=== PATIENT | male | born 1995 | race Caucasian/White ===

== ENCOUNTER 2021-07-06 11:58 | Oncology outpatient (recurring) (ONCR) | payer SELFPAY | END 2021-08-01 23:59 | disposition home or self-care (01) | PROVIDERS: Family Provider Internal Medicine; Visit Provider Internal Medicine Medical Oncology | DX: E83.110 Hereditary hemochromatosis (principal); E83.10 Disorder of iron metabolism, unspecified; Z79.899 Other long term (current) drug therapy | CPT/HCPCS: 36415; 80053; 82728; 83540; 83550; 99204 ==

== ENCOUNTER 2024-11-25 20:18 | Emergency (ER) | payer SELFPAY ==
--- OUTSIDE RECORDS SUMMARY | 2024-11-25 20:25 | XMS_ITS | Clinical Summary ---
Author Organization [facility] Address [address] [place] [address] Care Team Providers Care Camera Assembler Name Role Phone Unavailable Primary Care Provider Unavailabl e Allergies Active Allergy Reactions Criticality Noted Date Comments Buspirone (Bulk) Hallucination Low 08/23/2023 Suicidal issues Codeine Unknown 02/17/2008 Medications albuterol sulfate 90 mcg/Actuation inhaler Take 2 Puffs by inhalation every 6 hours as needed for Shortness of Breath. 0 Active fluticasone furoate-vilante roL (Breo Ellipta) 200-25 mcg/dose Disk with Device Take 1 Puff by inhalation daily. 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 2.5 week ICU stay. Only surviving quadruplet. ADHD (attention deficit hyperactivity disorder) Overview (06/30/2020): Diagnosed age 4. Intolerant to multiple stimulants (case HAs, abdominal pain). Strattera started 2004. Immunizations Immunization Administration Dates Next Due (M-M-R II/PRIORIX)(12 MO UP) MEASLES, MUMPS AND RUBELLA VIRUS VACCINE, 0.5 ML IM/SUBCUT 10/18/2000,05/05/1996 Dt Dtp Dtap Vaccine 10/18/2000, 7,1995,1995,1995 HIB, Unspecified Formulation 08/06/1996, 1995,1995,1995 Hepatitis B Vaccine 1995,1995,1995 IPV/OPV 10/18/2000, 6,1995,1995 Family History Medical History Relation Name Comments Healthy Father Healthy Maternal Grandfather Healthy Maternal Grandmother Healthy Mother Cancer Other mguncle prostrate Other Paternal Grandfather mv a Healthy Paternal Grandmother Breast Cancer Neg Hx Colon Cancer Neg Hx Relation Name Status Comments Father Maternal Grandfather Maternal Grandmother Mother Other mguncle Alive Paternal Grandfather Paternal Grandmother Social History Tobacco Use Types Packs/Day Years Used Date Smoking Tobacco: Former Smokeless Tobacco: Former Quit: 01/03/2011 Comments:Quit smoking: only tried smoking Alcohol Use Standard Drinks/Week Comments Yes 14 (1 standard drink = 0.6 oz pu re alcohol) Feeling Safe Answer Date Recorded Are you in a relationship wi th someone who hurts you emotionally and/or physically? 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 Gender Identity Not on file Sexual Orientation Not on file Last Filed Vital Signs Vital Sign Reading Time Taken Comments Blood Pressure 125/69 08/23/2023 10:00 AM CDT Pulse 60 08/23/2023 10:00 AM CDT Temperature 36.8 C (98.2 F) 08/23/2023 9:09 AM CDT Respiratory Rate 20 08/23/2023 10:0 0 AM CDT Oxygen Saturation 92% 08/23/2023 10: 00 AM CDT Inhaled Oxygen Concentration - - Weight 121.2 kg (267 lb 3.2 oz) 08/23/2023 9:09 AM CDT Height 175.3 cm (5' 9 ) 08/23/2023 9:09 AM CDT Body Mass Index 39.46 08/23/2023 9:09 AM CDT Plan of Treatment Health Maintenance Due Date Last Done Comments DTAP/TDAP/TD VACCINES (6 - Tdap) 2006 10/18/2000, 12/03/1996, 1995, Additional history exists HPV VACCINES (1 - 3-dose SCD M series) 2022 INFLUENZA VACCINE (#1) 2024 HEPATITIS B VACCINES Completed 1995, 1995, 1995
[2024-11-25 20:29] VITALS: BP 144/91; PULSE 95; RESP 18; TEMP 36.8; O2SAT 98; BMI 34.9
--- NOTE | 2024-11-25 20:36 | XR_ITS ---
WS: [id number] Exam: XR chest 1V portable [id number] Date/Time of Exam: 11/25/2024 8:36 PM Reason For Exam: syncope Comparison 10/12/2016. Lungs are fully inflated and clear. Normal cardiomediastinal silhouette and regional bony elements. XR/XR chest 1V portable [id number] IMPRESSION: 1. Normal chest.
--- NOTE | 2024-11-25 20:39 | ECG_ITS ---
[facility] Date: 2024-11-25 Pat Name: Mauricio Molina Department: Room: Gender: Male Manager Paid: : 1995 Requested By: Fabian Cornejo Order Number: [id number] Parsons MD: Rajat De Dios M.D. Measurements Intervals [place] Rate: 68 P: 52 OR: 163 QRS: 30 QRSD: 97 T: 34 QT: 343 QTc: 366 Interpretive Statements SINUS RHYTHM WITH SINUS ARRHYTHMIA EARLY REPOLARIZATION Compared to ECG 10/12/2016 23:22:22 No significant changes Electronically Signed On 11-25-2024 21:37:15 CDT by Rajat De Dios M.D. [id number]
[2024-11-25 21:03] VITALS: BP 131/80; PULSE 73; O2SAT 99
--- NOTE | 2024-11-25 21:07 | ED_ITS ---
HPI - Syncope 2 General: Chief Complaint: Syncope Stated Complaint: dizzy,hbp, high heart rate, headache Time Seen by Provider: 11/25/24 20:34 Source: patient Mode of arrival: ambulatory Limitations: no limitations History of Present Illness: Patient is a 29-year-old male with past medical history of panic disorder and anxiety/depression who presents to Emergency Department multiple complaints. He states he was working in his shop, he bent over and when he stood up he felt lightheaded like he was going to pass out. Also reported full body weakness and numbness down his right lower extremity that has all since resolved since coming Emergency Department. He states he thinks that he freaked himself out. He states that recently his father passed from a heart attack and he thinks that he worked himself up over this, states he had chest pain and shortness of breath with initial onset of symptoms as well but that these have since resolved. States that he has such severe anxiety that he has medicinal marijuana card for this, has smoked marijuana today. He has no symptoms otherwise at this time, he does note that he took his pulse and blood pressure at home with the onset of his symptoms and notes that both of these were significantly elevated, does not quantify. No pertinent cardiac history. Does not take anything else for anxiety and depression. Associated symptoms: Reports chest pain and lightheadedness; Deny abdominal pain, fever(s), headache(s) or nausea Related Data Previous Rx's ?Medication ?Instructions ?Recorded albuterol sulfate 90 mcg/actuation 2 puff inhalation Q 6H PRN 07/06/21 aerosol inhaler (Ventolin HFA) shortness of breath or wheezing #18 grams fluticasone propionate 110 2 puff inhalation BID #12 g alina 07/06/21 mcg/actuation HFA aerosol inhaler (Flovent HFA) Allergies Allergy/AdvReac Type Severity Reaction Status Date / Time buspirone (From BuSpar) Allergy ADR-Agitate Verified 11/25/24 20:34 d codeine Allergy ADR-Anxiety Verified 11/25/24 20:34 Review of Systems 2 General: Reports: 10 or more systems reviewed and unremarkable except in HPI and below Const: Denies: fever(s), chills or fatigue Eyes: Denies: change in vision ENMT: Denies: throat pain, ear or mastoid pain or nasal discharge Card: Reports: chest pain, palpitations, lightheadedness and pre-syncope; Denies: swelling of feet/ankles Resp: Reports: dyspnea; Denies: productive cough or wheezing GI: Denies: abdominal pain, nausea, vomiting, diarrhea or constipation : Denies: flank pain, difficulty urinating, dysuria or urinary frequency Musc: Denies: neck pain, back pain or joint pain Skin/Breast: Denies: rash Neuro: Reports: numbness in extremities, weakness in extremities, sensory changes and dizziness; Denies: headache(s), difficulty walking, Slurred speech present or seizure-like activity Psych: Reports: anxiety and panic attacks PFSH ED 2 PFSH: Medical History Asthma Depression Anxiety Hemochromatosis associated with mutation in HFE gene Surgical History History of ankle surgery Left ankle - [place], [place] Family History Family/Other Cancer Aunt - Breast cancer Father CAD (coronary artery disease) Hypertension Lung disease Psychiatric illness Grandmother Stroke Other Anesthesia complication Denies family history of Diabetes Clotting disorder Dementia Hyperlipidemia Chronic kidney disease (CKD) Suicide Bleeding disorder Social History Smoking and tobacco/nicotine status: former use of tobacco/nicotine Alcohol intake: current Alcohol intake frequency: holidays/special occasions only Substance/Drug Use: current Physical Exam 2 Const: COMMON NORMALS: no acute distress, patient oriented x3 and no limitations GENERAL APPEARANCE: cooperative, comfortable and well developed ORIENTATION/CONSCIOUSNESS: Yes awake, Yes oriented to person, Yes oriented to place and Yes oriented to time OTHER: anxious, nontoxic HENMT: COMMON NORMALS: normocephalic, atraumatic and hearing grossly normal bilaterally HEAD & SCALP: normocephalic and atraumatic Eye: COMMON NORMALS: Equal, round and reactive pupils present, EOMs intact bilaterally and conjunctivae normal CONJUNCTIVA: Yes conjunctivae normal P UPIL: Yes Equal, round and reactive pupils present Neck/C-Spine: COMMON NORMALS: full ROM, supple and no JVD Resp: COMMON NORMALS: normal respiratory effort, No retractions, No use of accessory muscles and clear to auscultation bilaterally AUSCULTATION: clear to auscultation bilaterally Cardio: COMMON NORMALS: no JVD, regular rate, regular rhythm, No clicks present (Cardio), No murmurs present (Cardio) and No rub (Cardio) RATE: r egular rate RHYTHM: regular rhythm GI: COMMON NORMALS: Normal to inspection, nondistended, normoactive bowel sounds present, Soft to palpation and non-tender AUSCULTATION: Yes normoactive bowel sounds PALPATION: Yes Soft to palpation RECTAL EXAM: Yes deferred Extremity: COMMON NORMALS: normal to inspection, full ROM and capillary refill normal Neuro: COMMON NORMALS: patient oriented x3, moves all extremities, no focal motor deficits and no sensory deficits noted SENSORIUM/ORIENTATION: Yes oriented to person, Yes oriented to place and Yes oriented to time Skin: COMMON NORMALS: no rashes or lesions noted GENERAL SKIN EXAM: no rashes or lesions noted Course 2 Vital Signs: Vital signs: Vital Signs Temperature 98.2 F 11/25/24 20:29 Pulse Rate 72 11/25/24 22:33 Respiratory Rate 18 11/25/24 20:29 Blood Pressure 145/86 11/25/24 22:33 Pulse Oximetry 98 11/25/24 22:33 Oxygen Delivery Me thod Room Air 11/25/24 22:27 MDM - Syncope Medical Decision Making This patient presented with multiple complaints, history of anxiety and panic attacks. States recently has been under a lot of stress, and father recently passed from a heart attack. Numerous symptoms such as chest pain, shortness of breath, numbness, weakness, and palpitations were reported and that he took his vitals afterwards and found to be tachycardic and hypertensive at home. Here his vitals have been stable, he is anxious at time of exam overall nontoxic- appearing. Lab work obtained including CBC and CMP was unremarkable, and EKG does not show any arrhythmias. He reportedly smokes marijuana for his panic as nothing else has worked for him in the past, he is given Ativan here and states that this helped his symptoms greatly. I suspect his symptoms were related to panic and that these are not cardiac in nature or other acute etiology, he will be allowed discharge home with strict turn precautions and informed to follow-up with primary care to address his anxiety and panic, which he verbalizes understanding. Lab Data 11/25/24 21:28 11/25/24 21: Laboratory Results WBC 9.63 10^3/uL (3.29-11.43) 11/25/24: RBC 5.23 10^6/uL (3.85-5.65) 11/25/24 21: Hgb 16.00 g/dL (11.27-16.99) 11/25/24: Hct 45.2 % (37-53) 11/25/24 21: MCV 86.4 fl (82-101) 11/25/24 21: MCH 30.6 pg (27-33) 11/25/24 21: MCHC 35.4 g/dL (30-55) 11/25/24: RDW 12.8 % (12.1-15.1) 11/25/24: Plt Count 258 10^3/cmm (157-399) 11/25/24: MPV 10.5 fL (7.4-10.4) H 11/25/24: Neut % (Auto) 70.9 % 11/25/24: Lymph % (Auto) 14.4 % 11/25/24: Mcleod % (Auto) 8.1 % 11/25/24: Eos % (Auto) 5.6 % 11/25/24: Baso % (Auto) 0.8 % 11/25/24: Neut # (Auto) 6.82 10^3/uL (1.8-7.7) 11/25/24: Lymph # (Auto) 1.4 10^3/uL (0.8-4.8) 11/25/24: Mcleod # (Auto) 0.8 10^3/uL (0.2-0.9) 11/25/24: Eos # (Auto) 0.5 10^3/uL (0.0-0.8) 11/25/24: Baso # (Auto) 0.1 10^3/uL (0.0-0.1) 11/25/24: Nucleated RBC % (auto) 0 % 09/24/25 21:28 Nucleated RBCs # 0.0 /100WBC 11/25/24 21:28 Sodium 140 mmol/L (136-145) 11/25/24 21:28 Potassium 3.7 mmol/L (3.5-5.1) 11/25/24 21:28 Chloride 104 mmol/L (98-107) 11/25/24 21: Carbon Dioxide 26 mmol/L (22-29) 11/25/24 21: Anion Gap 13.7 (5-19) 11/25/24 21:28 BUN 13 mg/dL (6-20) 11/25/24 21:28 Creatinine 0.7 mg/dL (0.7-1.2) 11/25/24 21: GFR Calculation 133.3 mL/min (90-130) H 11/25/24 21: Glucose 79 mg/dL (65-115) 11/25/24 21: Calculated Osmolality 289 mOsm/kg (285-295) 11/25/24 21: Calcium 9.6 mg/dL (8.5-10.5) 11/25/24 21:28 Total Bilirubin 0.4 mg/dL (0.15-1.2) 11/25/24 21:28 AST 21 U/L (0-40) 11/25/24 21:28 ALT 23 U/L (0-41) 11/25/24 21:28 Alkaline Phosphatase 109 U/L (40-130) 11/25/24 21:28 Total Protein 7.4 g/dL (6.6-8.7) 11/25/24 21: Albumin 4.8 g/dL (3.5-5.2) 11/25/24 21:28 Globulin 2.6 g/dL (1.3-4.6) 11/25/24 21:28 Urine Color Yellow (Yellow) 11/25/24 21:55 Urine Appearance Clear (CLEAR) 11/25/24 21:55 Urine pH 7.0 (5-7) 11/25/24 21:55 Ur Specific [place] 1.004 (1.005-1.030) L 11/25/24 21:55 Urine Protein Negative (Negative) 11/25/24 21:55 Urine Glucose (UA) Negative (Normal) 11/25/24 21:55 Urine Ketones Negative (Negative) 11/25/24 21:55 Urine Blood Negative (Negative) 11/25/24 21:55 Urine Nitrate Negative (Negative) 11/25/24 21:55 Urine Bilirubin Negative (Negative) 11/25/24 21:55 Urine Urobilinogen 0.2 mg/dL (Negative) 11/25/24 21:55 Ur Leukocyte Esterase Negative (Negative) 11/25/24 21:55 Urine RBC 0-2 /hpf (0-2) 11/25/24 21:55 Urine WBC 0-5 /hpf (0-5) 11/25/24 21:55 Ur Squamous Epith Cells 0-5 /hpf (0-5) 11/25/24 21:55 Amorphous Sediment Not Reportable 11/25/24 21:55 Urine Bacteria None seen /hpf (NONE) 11/25/24 21:55 Hyaline Casts 0-4 /lpf H 11/25/24 21:55 Urine Opiates Screen Negative ng/mL (Negative) 11/25/24 21:55 Ur Barbiturates Screen Negative ng/mL (Negative) 11/25/24 21:55 Ur Phencyclidine Scrn Negative ng/mL (Negative) 11/25/24 21:55 Ur Amphetamines Screen Negative ng/mL (Negative) 11/25/24 21:55 U Benzodiazepines Scrn Negative ng/mL (Negative) 11/25/24 21:55 Urine Cocaine Screen Negative ng/mL (Negative) 11/25/24 21:55 U Marijuana (THC) Screen Positive ng/mL (Negative) H 11/25/24 21:55 XR interpretation done by ED provider, pending radiology final review ED provider radiology interpretation(s): Chest x-ray showed no acute cardiopulmonary process. Discharge Plan Discharge Patient Disposition: Home Clinical Impression: Anxiety Condition: Stable Prescriptions: No Action albuterol sulfate [Ventolin HFA] 90 mcg/actuation HFA aerosol inhaler 2 puff inhalation Q6H PRN (Reason: shortness of breath or wheezing) Qty: 18 0RF Flovent HFA 110 mcg/actuation HFA aerosol inhaler 2 puff inhalation BID Qty: 12 0RF Discharge Orders: Discharge ED (Routine); Ordered 11/25/24 Ordered By: Fabian Martins Referrals: Emmy Davey NP [Primary Care Provider, Nurse Practitioner] Kenia Tapia MD [Family Provider, Internal Medicine] Patient Instructions: Patient Portal & Alberto Instructions Activity Restrictions/Additional Instructions: Follow-up with your primary care provider for further evaluation. Please return with any new or worsening. Print Language: Romansh Coding Level of Care Code ED Machine Clerical Verifier for Jono Nino
[2024-11-25 21:27] VITALS: BP 128/76; BP 134/69; BP 141/78; PULSE 86; PULSE 94; PULSE 98
[2024-11-25 21:47] LABS: Hematocrit 45.2 % (37-53); Hemoglobin 16.00 g/dL (11.27-16.99); Mean Corpuscular HGB Conc 35.4 g/dL (30-55); Mean Corpuscular Hemoglobin 30.6 pg (27-33); Mean Corpuscular Volume 86.4 fl (82-101); Nucleated Red Blood Cells % 0 %; Platelet Count 258 10^3/cmm (157-399); Red Blood Count 5.23 10^6/uL (3.85-5.65); White Blood Count 9.63 10^3/uL (3.29-11.43)
[2024-11-25 22:02] LABS: Glucose Urine UA Negative (Normal); Nitrate Urine Negative (Negative); Specific Gravity, Urine 1.004 (1.005-1.030)
[2024-11-25 22:06] LABS: Add Urine Microscopic? YES
[2024-11-25 22:09] LABS: Alanine Aminotransferase 23 U/L (0-41); Albumin Level 4.8 g/dL (3.5-5.2); Alkaline Phosphatase 109 U/L (40-130); Anion Gap 13.7 (5-19); Aspartate Amino Transferase 21 U/L (0-40); Blood Urea Nitrogen 13 mg/dL (6-20); Calcium 9.6 mg/dL (8.5-10.5); Carbon Dioxide 26 mmol/L (22-29); Chloride 104 mmol/L (98-107); Creatinine Clr Calc Pharmacy 182.2920; Globulin 2.6 g/dL (1.3-4.6); Glucose 79 mg/dL (65-115); Osmolality Calculated 289 mOsm/kg (285-295); Potassium 3.7 mmol/L (3.5-5.1); Sodium 140 mmol/L (136-145); Total Protein 7.4 g/dL (6.6-8.7)
[2024-11-25 22:09] LABS: PCP Screen Urine Negative (Negative)
[2024-11-25 22:27] VITALS: BP 121/84; PULSE 80; O2SAT 97
[2024-11-25 22:33] VITALS: BP 145/86; PULSE 72; O2SAT 98
== END 2024-11-25 22:48 | disposition home or self-care (01) ==
PROVIDERS: Emergency Provider Physician Assistant; Family Provider Internal Medicine; PCP Nurse Practitioner Family
DX: F41.9 Anxiety disorder, unspecified (principal); Z87.891 Personal history of nicotine dependence
CPT/HCPCS: 36415; 71045; 80053; 80306; 81001; 85025; 93005; 99285; J9999

== ENCOUNTER 2024-12-18 21:13 | Emergency (ER) | payer SELFPAY ==
[2024-12-18 21:21] VITALS: BP 144/97; PULSE 73; RESP 14; TEMP 36.7; O2SAT 100
--- OUTSIDE RECORDS SUMMARY | 2024-12-18 21:22 | XMS_ITS | Clinical Summary ---
Author Organization [facility] Address 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
--- NOTE | 2024-12-18 21:39 | W.ED.EAR ---
HPI - Ear Problem General: Chief complaint: Ear Stated complaint: LT Severe ear pain Time Seen by Provider: 12/18/24 21:28 Source: patient Mode of arrival: ambulatory Limitations: no limitations History of Present Illness: [id number] male states been having left ear pain over the last 2 days. States pains been sharp in nature rates it a 7 out of 10. He has not been swimming as he denies any drainage denies any fever denies any headache denies any worse improved factors. Associated symptoms: Reports ear or mastoid pain Related Data Previous Rx's ?Medication ?Instructions ?Recorded albuterol sulfate 90 mcg/actuation 2 puff inhalation Q6H PRN 07/06/21 aerosol inhaler (Ventolin HFA) shortness of breath or wheezing #18 grams fluticasone propionate 110 2 puff inhalation BID #12 grams 07/06/21 mcg/actuation HFA aerosol inhaler (Flovent HFA) cephalexin 500 mg capsule 500 mg PO TID 7 days #21 caps 12/18/24 naproxen 500 mg tablet (Naprosyn) 500 mg PO BID PRN pain #20 tabs 12/18/24 Allergies Allergy/AdvReac Type Severity Reaction Status Date / Time buspirone (From BuSpar) Allergy ADR-Agitate Verified 12/18/24 21:24 d codeine Allergy ADR-Anxiety Verified 12/18/24 21:24 Review of Systems ENMT: Reports: ear or mastoid pain [facility] ED PFSH: Medical History Asthma Depression Anxiety Hemochromatosis associated with mutation in HFE gene Surgical History History of ankle surgery Left ankle - [place], [place] Family History Family/Other Cancer Aunt - Breast cancer Father CAD (coronary artery disease) Hypertension Lung disease Psychiatric illness Grandmother Stroke Other Anesthesia complication Denies family history of Diabetes Clotting disorder Dementia Hyperlipidemia Chronic kidney disease (CKD) Suicide Bleeding disorder Social History Smoking and tobacco/nicotine status: former use of tobacco/nicotine Alcohol intake: current Alcohol intake frequency: holidays/special occasions only Substance/Drug Use: current Physical Exam Const: COMMON NORMALS: no acute distress, patient oriented x3 and healthy appearing HENMT: COMMON NORMALS: normocephalic and atraumatic HEAD & SCALP: normocephalic and atraumatic TYMPANIC MEMBRANE: TM abnormal TM laterality: left Details: erythematous THROAT: posterior oropharynx normal OTHER: No tenderness over left mastoid Eye: COMMON NORMALS: conjunctivae normal CONJUNCTIVA: Yes conjunctivae normal Neck/C-Spine: COMMON NORMALS: full ROM and supple Chest: COMMONS NORMALS: normal inspection of the chest Resp: COMMON NORMALS: normal respiratory effort Cardio: COMMON NORMALS: regular rate, regular rhythm and No murmurs present (Cardio) RATE: regular rate RHYTHM: regular rhythm Extremity: COMMON NORMALS: normal to inspection and full ROM Neuro: COMMON NORMALS: patient oriented x3, moves all extremities and no focal motor deficits Psych: COMMON NORMALS: mental status grossly normal, Normal thought process present and cooperative THOUGHT PROCESS: Normal thought process present Skin: COMMON NORMALS: no rashes or lesions noted and no wounds GENERAL SKIN EXAM: no rashes or lesions noted Course Vital Signs: Vital signs: Vital Signs Temperature 98.0 F 12/18/24 21:21 Pulse Rate 73 12/18/24 21:21 Respiratory Rate 14 12/18/24 21:21 Blood Pressure 144/97 12/18/24 21:21 Pulse Oximetry 100 12/18/24 21:21 MDM - Ear Medical Decision Making Patient presents here with otitis media. He has erythema on his ear exam he has no signs of malignant otitis externa no signs of otitis externa. He has no tenderness over his mastoid no signs of mastoiditis. Will start him on Keflex did give him [place] and Keflex here. He is to follow-up with PCP and return if worsening he understands agrees to plan Medical Records I reviewed the patient's medical records. No radiology studies performed this visit Discharge Plan Discharge Patient Disposition: Home Clinical Impression: Otitis media Qualifiers: Otitis media type: unspecified Laterality: left Qualified Code(s): H66.92 - Otitis media, unspecified, left ear Condition: Stable Prescriptions: New cephalexin 500 mg capsule 500 mg PO TID 7 Days Qty: 21 0RF naproxen [Naprosyn] 500 mg tablet 500 mg PO BID PRN (Reason: pain) Qty: 20 0RF No Action albuterol sulfate [Ventolin HFA] 90 mcg/actuation HFA aerosol inhaler 2 puff inhalation Q6H PRN (Reason: shortness of breath or wheezing) Qty: 18 0RF Flovent HFA 110 mcg/actuation HFA aerosol inhaler 2 puff inhalation BID Qty: 12 0RF Discharge Orders: Discharge ED (Routine); Ordered 12/18/24 Ordered By: Gerber Amador Referrals: Emmy Davey NP [Primary Care Provider, Nurse Practitioner] - 4-7 days Kenia Tapia MD [Family Provider, Internal Medicine] Discharge Diet: Advance as tolerated Discharge Activity: Resume usual activity Patient Instructions: Ear Infection (ED) Print Language: Estonian Coding Level of Care Code ED Inspector Canned Food Reconditioning for Jono Nino
[2024-12-18] MEDS: HYDROcodone-acetaminophen 5-325 mg Tablet 1 TAB PO (21:44)
== END 2024-12-18 21:46 | disposition home or self-care (01) ==
PROVIDERS: Emergency Provider Emergency Medicine; Family Provider Internal Medicine; PCP Nurse Practitioner Family
DX: H66.92 Otitis media, unspecified, left ear (principal); Z87.891 Personal history of nicotine dependence
CPT/HCPCS: 99283; J9999